=== PATIENT | male | born 1955 | race African-American/Black ===

== ENCOUNTER 2020-12-14 01:22 | Inpatient (IN) | payer OTHER ==
[2020-12-14 02:50] LABS: VENOUS BASE EXCESS -0.2 mmol/L (-2-2); VENOUS O2 SATURATION 69.1 % (70-80); VENOUS PCO2 49.7 mmHg (38-52); VENOUS PH 7.343 (7.310-7.410)
[2020-12-14 03:03] LABS: BASO % 0.2 % (0-2.0); HEMATOCRIT 48.5 % (35.4-49); HEMOGLOBIN 16.6 GM/dL (11.7-16.9); LYMPH % 15.1 % (8-40); MCHC 34.2 g/dl (32.0-35.9); MEAN CELL VOLUME 90.6 fl (80-96); MEAN PLT VOLUME 10.8 fl (7.5-11.1); MONO % 7.5 % (3.8-10.2); NEUT % 77.2 % (42.8-82.8); PLATELET COUNT 93 K/MM3 (134-434); RBC 5.35 M/mm3 (4.00-5.60); RDW 14.3 % (11.9-15.9); WHITE BLOOD COUNT 7.3 K/mm3 (4.0-10.0)
[2020-12-14 03:27] LABS: POTASSIUM 4.5 mmol/L (3.5-5.1)
[2020-12-14 03:30] LABS: CALCIUM 8.1 mg/dL (8.5-10.1)
[2020-12-14 03:31] LABS: ALBUMIN 2.9 g/dl (3.4-5.0); BLOOD UREA NITROGEN 21.8 mg/dL (7-18)
[2020-12-14 03:32] LABS: INR 1.21 (0.83-1.09); PROTHROMBIN TIME (PATIENT) 14.8 SEC (9.7-13.0)
[2020-12-14 03:33] LABS: BILIRUBIN,DIRECT 0.4 mg/dL (0.0-0.2)
[2020-12-14 03:34] LABS: CREATININE 1.2 mg/dL (0.55-1.3)
[2020-12-14 03:35] LABS: ACTIVATED PTT 31.8 SECONDS (25.2-36.5); TOT PROT 7.2 g/dl (6.4-8.2)
[2020-12-14 03:36] LABS: EPI CELLS 16 /uL (0-25.1); HYALINE CASTS 7 /uL (0-3.1); PH,URINE 5.5 (5.0-8.0); URINE APPEARANCE CLEAR; URINE BACTERIA 98 /uL (0-1359); URINE BILIRUBIN 1+ (NEGATIVE); URINE COLOR DK YELLOW; URINE GLUCOSE (UA) NEGATIVE (NEGATIVE); URINE KETONE 1+ (NEGATIVE); URINE LEUK ESTERASE NEGATIVE (NEGATIVE); URINE NITRITE NEGATIVE (NEGATIVE); URINE PROTEIN 4+ (NEGATIVE); URINE RBC 23 /uL (0-23.9); URINE WBC 18 /uL (0-25.8)
[2020-12-14] MEDS ORDERED: DEXAMETHASONE SOD PHOSPHATE 4 MG/1 ML VIAL IVPUSH ONE (04:06)
[2020-12-14] MEDS ORDERED: ACETAMINOPHEN 325 MG TABLET (FP) PO PRN ×2 (05:05→22:55)
[2020-12-14] MEDS ORDERED: ALBUTEROL SO4 0.083% IH SOL 2.5 MG/3 ML VIAL.NEB. NEB PRN ×2 (05:08→22:55)
[2020-12-14] MEDS ORDERED: SODIUM CHLORIDE 1,000 ML IV STA (05:10)
[2020-12-14] MEDS ORDERED: DEXAMETHASONE SOD PHOSPHATE 10 MG/1 ML VIAL ONE (05:15)
[2020-12-14] MEDS ORDERED: ZINC SULFATE 220 MG CAPSULE (FP) PO SCH (10:00)
[2020-12-14] MEDS ORDERED: ASCORBIC ACID 500 MG TABLET (FP) PO SCH ×2 (10:00→22:00)
[2020-12-14] MEDS ORDERED: ENOXAPARIN NA (PORCINE) 40 MG/0.4 ML DISP.SYRIN SQ SCH (10:00)
[2020-12-14] MEDS ORDERED: CHOLECALCIFEROL (VIT D3) 1,000 UNIT (25 MCG) TABLET PO SCH (10:00)
[2020-12-14] MEDS ORDERED: CEFTRIAXONE 1,000 MG in DEXTROSE 5%-WATER - 50 ML IVPB SCH (10:15)
[2020-12-14] MEDS ORDERED: FAMOTIDINE 20 MG TABLET ONE (10:19)
[2020-12-14] MEDS ORDERED: ZINC SULFATE 220 MG CAPSULE (FP) ONE (10:19)
[2020-12-14] MEDS ORDERED: CHOLECALCIFEROL (VIT D3) 1,000 UNIT (25 MCG) TABLET ONE (10:20)
[2020-12-14] MEDS ORDERED: DOXYCYCLINE HYCLATE 100 MG VIAL ONE (10:20)
[2020-12-14] MEDS ORDERED: CEFTRIAXONE 1 GM/50 ML BAG ONE (10:20)
[2020-12-14] MEDS ORDERED: ENOXAPARIN NA (PORCINE) 40 MG/0.4 ML DISP.SYRIN SQ ONE (10:20)
[2020-12-14] MEDS: FAMOTIDINE 20 MG TABLET PO SCH ×2 (10:38→21:48)
[2020-12-14] MEDS ORDERED: CEFTRIAXONE 1 GM in DEXTROSE 5%-WATER - 50 ML IVPB SCH (10:44)
[2020-12-14] MEDS: DOXYCYCLINE INJECTION 100 MG in DEXTROSE 5%-WATER - 100 ML IVPB SCH ×2 (11:12→23:14)
[2020-12-14] MEDS: BUDESONIDE/FORMETEROL FUMARATE 160/4.5 mcg INHALER IH SCH ×2 (12:21→23:13)
[2020-12-14] MEDS ORDERED: dilTIAZem HCL 50 MG/10 ML - 10 ML VIAL IVPUSH ONE (19:33)
[2020-12-14] MEDS ORDERED: dilTIAZem HCL 125 MG/25 ML - 25 ML VIAL ONE (19:37)
[2020-12-14] MEDS ORDERED: dilTIAZem HCL 30 MG TABLET ONE (19:42)
[2020-12-14] MEDS ORDERED: dilTIAZem HCL 50 MG/10 ML - 10 ML VIAL IVPUSH PRN (19:55)
[2020-12-14] MEDS ORDERED: dilTIAZem HCL 30 MG TABLET PO SCH (20:00)
[2020-12-14] MEDS: dilTIAZem HCL 25 MG/5 ML - 5 ML VIAL IVPUSH PRN (21:47)
[2020-12-14] MEDS ORDERED: REMDESIVIR 200 MG in SODIUM CHLORIDE 210 ML IVPB ONE (22:00)
[2020-12-14] MEDS ORDERED: PT OWN MED DRAWER 7, Y5N ONE (22:49)
[2020-12-15] MEDS: BUDESONIDE/FORMETEROL FUMARATE 160/4.5 mcg INHALER IH SCH ×3 (00:17→23:26)
[2020-12-15] MEDS: DOXYCYCLINE INJECTION 100 MG in DEXTROSE 5%-WATER - 100 ML IVPB SCH ×3 (00:17→23:22)
[2020-12-15 00:50] VITALS: BMI 31.1
[2020-12-15] MEDS: dilTIAZem HCL 25 MG/5 ML - 5 ML VIAL IVPUSH PRN (06:29)
[2020-12-15 07:34] LABS: BASO % 0.3 % (0-2.0); HEMATOCRIT 51.9 % (35.4-49); HEMOGLOBIN 17.6 GM/dL (11.7-16.9); LYMPH % 6.6 % (8-40); MCHC 33.9 g/dl (32.0-35.9); MEAN CELL VOLUME 91.6 fl (80-96); MEAN PLT VOLUME 10.5 fl (7.5-11.1); NEUT % 88.1 % (42.8-82.8); PLATELET COUNT 124 K/MM3 (134-434); RBC 5.66 M/mm3 (4.00-5.60); RDW 14.4 % (11.9-15.9); WHITE BLOOD COUNT 15.5 K/mm3 (4.0-10.0)
[2020-12-15 08:08] LABS: POTASSIUM 4.1 mmol/L (3.5-5.1)
[2020-12-15 08:10] LABS: CALCIUM 8.5 mg/dL (8.5-10.1)
[2020-12-15 08:11] LABS: ALBUMIN 2.8 g/dl (3.4-5.0); BLOOD UREA NITROGEN 25.4 mg/dL (7-18)
[2020-12-15 08:14] LABS: PHOSPHOROUS 2.9 mg/dL (2.5-4.9)
[2020-12-15 08:15] LABS: BILIRUBIN,TOTAL 0.4 mg/dL (0.2-1); MAGNESIUM 2.1 mg/dL (1.8-2.4)
[2020-12-15 08:16] LABS: TOT PROT 7.2 g/dl (6.4-8.2)
[2020-12-15] MEDS ORDERED: PT OWN MED DRAWER 7, Y5N ONE ×2 (08:58→10:17)
[2020-12-15] MEDS ORDERED: dilTIAZem HCL 50 MG/10 ML - 10 ML VIAL IVPUSH ONE (09:08)
[2020-12-15] MEDS ORDERED: METOPROLOL TARTRATE 5 MG/5 ML VIAL IVPUSH ONE ×3 (09:20→16:50)
[2020-12-15] MEDS ORDERED: METOPROLOL TARTRATE 5 MG/5 ML VIAL ONE ×2 (09:25→17:00)
[2020-12-15] MEDS ORDERED: METOPROLOL TARTRATE 25 MG TABLET (FP) PO SCH (09:34)
[2020-12-15] MEDS ORDERED: METOPROLOL TARTRATE 5 MG/5 ML VIAL IVPUSH PRN (09:34)
[2020-12-15] MEDS ORDERED: ENOXAPARIN NA (PORCINE) 40 MG/0.4 ML DISP.SYRIN SQ SCH (10:00)
[2020-12-15] MEDS ORDERED: FAMOTIDINE 20 MG TABLET PO SCH (10:00)
[2020-12-15] MEDS ORDERED: DEXAMETHASONE SOD PHOSPHATE 4 MG/1 ML VIAL IVPUSH SCH (10:00)
[2020-12-15] MEDS ORDERED: CEFTRIAXONE 1 GM in DEXTROSE 5%-WATER - 50 ML IVPB SCH (10:00)
[2020-12-15] MEDS ORDERED: cefTRIAXone SODIUM 1 GM VIAL ONE (10:17)
[2020-12-15] MEDS ORDERED: DEXTROSE 5%-WATER - 50 ML IVPB ONE ×2 (10:17→22:36)
[2020-12-15] MEDS: DEXAMETHASONE SOD PHOSPHATE 4 MG/1 ML VIAL IVPUSH SCH (10:47)
[2020-12-15] MEDS: ZINC SULFATE 220 MG CAPSULE (FP) PO SCH (10:47)
[2020-12-15] MEDS: ASCORBIC ACID 500 MG TABLET (FP) PO SCH ×2 (10:47→22:32)
[2020-12-15] MEDS: CHOLECALCIFEROL (VIT D3) 1,000 UNIT (25 MCG) TABLET PO SCH (10:49)
[2020-12-15] MEDS ORDERED: METOPROLOL TARTRATE 25 MG TABLET (FP) PO ONE (12:00)
[2020-12-15] MEDS: METOPROLOL TARTRATE 50 MG TABLET (FP) PO SCH ×2 (13:11→22:30)
[2020-12-15] MEDS ORDERED: FUROSEMIDE 40 MG/4 ML INJECTABLE VIAL IVPUSH ONE (15:41)
[2020-12-15] MEDS ORDERED: AMIODARONE HCL 150 MG/3 ML VIAL IVPUSH ONE (16:46)
[2020-12-15] MEDS ORDERED: AMIODARONE IN DEXTROSE,ISO-OSM 150 MG/100 ML BAG IVPB ONE (16:46)
[2020-12-15] MEDS ORDERED: morphine SULFATE 4 MG/ML VIAL ONE (16:59)
[2020-12-15] MEDS ORDERED: AMIODARONE IN DEXTROSE,ISO-OSM 360 MG/200 ML BAG ONE ×2 (17:08→23:41)
[2020-12-15] MEDS ORDERED: morphine SULFATE 4 MG/ML VIAL IVPUSH ONE (17:10)
[2020-12-15] MEDS ORDERED: LORazepam 2 MG/ML SDV VIAL ONE (17:11)
[2020-12-15] MEDS ORDERED: RAPID SEQUENCE INTUBATION KIT NR ONE (17:22)
[2020-12-15] MEDS ORDERED: FENTANYL IVPB 500 MCG/100 ML BAG IVPB ONE (17:38)
[2020-12-15] MEDS ORDERED: VECURONIUM BROMIDE 10 MG/10 ML VIAL IV ONE (17:57)
[2020-12-15] MEDS ORDERED: VECURONIUM BROMIDE 10 MG/10 ML VIAL ONE (17:57)
[2020-12-15] MEDS ORDERED: TOCILIZUMAB (ACTEMRA) 200 MG/10 ML VIAL IVPB ONE (18:00)
[2020-12-15] MEDS ORDERED: LORazepam 2 MG/ML SDV VIAL IVPUSH ONE (18:19)
[2020-12-15 18:36] LABS: ARTERIAL BLD GAS O2 SATURATION 77.2 mmHg (95-98); ARTERIAL BLOOD GAS BASE EXCESS -10.7 mmol/L (-2-2); ARTERIAL BLOOD GAS PO2 56.8 mmHg (80-100)
[2020-12-15 18:37] LABS: ALLENS TEST POSITIVE
[2020-12-15 18:42] LABS: VENT MODE A/C; VENT RATE 28
[2020-12-15] MEDS ORDERED: TOCILIZUMAB 600 MG in SODIUM CHLORIDE 70 ML IVPB ONE (19:00)
[2020-12-15] MEDS: PROPOFOL 1,000,000 MCG/100 ML VIAL IVPB SCH (19:25)
[2020-12-15] MEDS: FENTANYL IVPB 500 MCG/100 ML BAG IVPB SCH (19:26)
[2020-12-15] MEDS ORDERED: SODIUM CHLORIDE 250 ML IV STA (19:39)
[2020-12-15] MEDS ORDERED: CALCIUM CHLORIDE 1 GM/10 ML *DISP.SYRIN ONE (20:48)
[2020-12-15 21:55] LABS: BASO % 1.6 % (0-2.0); EOS % 0.2 % (0-4.5); HEMATOCRIT 54.9 % (35.4-49); MCH 31.2 pg (25.7-33.7); MCHC 32.9 g/dl (32.0-35.9); MEAN PLT VOLUME 10.2 fl (7.5-11.1); MONO % 2.8 % (3.8-10.2); NEUT % 88.4 % (42.8-82.8); RBC 5.77 M/mm3 (4.00-5.60); WHITE BLOOD COUNT 16.4 K/mm3 (4.0-10.0)
[2020-12-15] MEDS ORDERED: REMDESIVIR 100 MG in SODIUM CHLORIDE 230 ML IVPB SCH (22:00)
[2020-12-15 22:01] LABS: INR 1.45 (0.83-1.09); PROTHROMBIN TIME (PATIENT) 17.7 SEC (9.7-13.0)
[2020-12-15 22:03] LABS: ACTIVATED PTT 42.9 SECONDS (25.2-36.5)
[2020-12-15 22:12] LABS: ARTERIAL BLD GAS O2 SATURATION 87.9 mmHg (95-98); ARTERIAL BLOOD GAS BASE EXCESS -16.4 mmol/L (-2-2); ARTERIAL BLOOD GAS PO2 80.6 mmHg (80-100)
[2020-12-15 22:19] LABS: CHLORIDE 100 mmol/L (98-107); SODIUM 141 mmol/L (136-145)
[2020-12-15 22:21] LABS: ALLENS TEST POSITIVE; VENT MODE A/C; VENT RATE 34
[2020-12-15 22:21] LABS: ALBUMIN 1.9 g/dl (3.4-5.0); BLOOD UREA NITROGEN 40.2 mg/dL (7-18); CO2 23 mmol/L (21-32); GLUCOSE,RANDOM 85 mg/dL (74-106); MAGNESIUM 4.1 mg/dL (1.8-2.4)
[2020-12-15 22:23] LABS: ARTERIAL BLOOD GAS pH 6.988 (7.350-7.450)
[2020-12-15 22:24] LABS: CREATININE 2.7 mg/dL (0.55-1.3)
[2020-12-15 22:26] LABS: BILIRUBIN,TOTAL 0.9 mg/dL (0.2-1); TOT PROT 5.9 g/dl (6.4-8.2)
[2020-12-15 22:27] LABS: ALK PHOS 76 U/L (45-117)
[2020-12-15 22:34] LABS: ANION GAP 18 MMOL/L (8-16); SGPT/ALT 3004 U/L (13-61)
[2020-12-15] MEDS ORDERED: PIPERACILLIN/TAZOBACTAM 3.375 GM VIAL IVPB ONE (22:36)
[2020-12-15 22:37] LABS: PHOSPHOROUS 13.4 mg/dL (2.5-4.9); POTASSIUM 6.1 mmol/L (3.5-5.1)
[2020-12-15] MEDS ORDERED: INSULIN REGULAR HUMAN 100 UNITS/ML *VIAL SQ ONE (22:40)
[2020-12-15] MEDS ORDERED: DEXTROSE 50%-WATER - 25 GM/50 ML VIAL IVPUSH ONE (22:40)
[2020-12-15] MEDS ORDERED: ALBUTEROL SO4 0.083% IH SOL 2.5 MG/3 ML VIAL.NEB. NEB ONE (22:41)
[2020-12-15] MEDS ORDERED: DEXTROSE 50%-WATER 25 GM/50 ML DISP.SYRIN ONE (22:41)
[2020-12-15] MEDS ORDERED: CALCIUM GLUCONATE 10% - 1,000 MG/10 ML VIAL IVPUSH ONE (22:42)
[2020-12-15] MEDS ORDERED: SODIUM BICARBONATE 8.4% - 150 MEQ in DEXTROSE 5%-WATER - 950 ML IVPB SCH (22:45)
[2020-12-15 22:54] LABS: ANISOCYTOSIS 1+; MACROCYTOSIS 0; PLATELET ESTIMATE DECREASED
[2020-12-15 22:56] LABS: PLATELET COUNT 90 K/MM3 (134-434)
[2020-12-15] MEDS: FAMOTIDINE 20 MG/50 ML IVPB 20 MG/50 ML MG IVPB SCH (23:22)
[2020-12-15] MEDS: PIPERACILLIN/TAZOB 3.375 GM 3.375 GM in DEXTROSE 5%-WATER - 50 ML IVPB SCH (23:23)
[2020-12-15] MEDS ORDERED: AMIODARONE HCL INJECTION 150 MG in DEXTROSE 5%-WATER - 100 ML IVPB ONE (23:31)
[2020-12-16] MEDS: SODIUM BICARBONATE 8.4% - 150 MEQ in DEXTROSE 5%-WATER - 1,000 ML IVPB SCH ×3 (00:01→23:04)
[2020-12-16] MEDS ORDERED: AMIODARONE IN DEXTROSE,ISO-OSM 360 MG/200 ML BAG IVPB SCH (00:15)
[2020-12-16] MEDS: AMIODARONE IN DEXTROSE,ISO-OSM 360 MG/200 ML BAG IVPB SCH ×2 (00:24→20:00)
[2020-12-16] MEDS: NOREPINEPHRINE D5W PREMIX 16,000 MCG/500 ML BAG IVPB SCH ×2 (00:25→23:00)
[2020-12-16] MEDS ORDERED: DEXTROSE 5%-WATER - 50 ML IVPB ONE ×4 (01:21→17:39)
[2020-12-16] MEDS ORDERED: PIPERACILLIN/TAZOBACTAM 3.375 GM VIAL IVPB ONE ×3 (01:21→08:06)
[2020-12-16] MEDS: PIPERACILLIN/TAZOB 3.375 GM 3.375 GM in DEXTROSE 5%-WATER - 50 ML IVPB SCH ×2 (03:56→09:18)
[2020-12-16 06:29] LABS: ARTERIAL BLD GAS O2 SATURATION 76.9 mmHg (95-98); ARTERIAL BLOOD GAS BASE EXCESS -20.7 mmol/L (-2-2); ARTERIAL BLOOD GAS PO2 67.6 mmHg (80-100)
[2020-12-16 06:40] LABS: ALLENS TEST POSITIVE; VENT MODE A/C
[2020-12-16 06:41] LABS: VENT RATE 34
[2020-12-16] MEDS: METOPROLOL TARTRATE 50 MG TABLET (FP) PO SCH (07:00)
[2020-12-16 07:22] LABS: BASO % 0.3 % (0-2.0); EOS % 0.1 % (0-4.5); HEMATOCRIT 48.3 % (35.4-49); HEMOGLOBIN 15.2 GM/dL (11.7-16.9); LYMPH % 10.6 % (8-40); MCH 31.2 pg (25.7-33.7); MCHC 31.4 g/dl (32.0-35.9); MEAN CELL VOLUME 99.5 fl (80-96); MEAN PLT VOLUME 10.6 fl (7.5-11.1); MONO % 2.3 % (3.8-10.2); NEUT % 86.7 % (42.8-82.8); PLATELET COUNT 73 K/MM3 (134-434); RBC 4.85 M/mm3 (4.00-5.60); RDW 16.2 % (11.9-15.9); WHITE BLOOD COUNT 15.3 K/mm3 (4.0-10.0)
[2020-12-16 07:52] LABS: ALBUMIN 1.6 g/dl (3.4-5.0); CALCIUM 7.6 mg/dL (8.5-10.1)
[2020-12-16 07:53] LABS: BLOOD UREA NITROGEN 45.5 mg/dL (7-18); CO2 16 mmol/L (21-32); MAGNESIUM 3.2 mg/dL (1.8-2.4)
[2020-12-16 07:56] LABS: CREATININE 3.5 mg/dL (0.55-1.3)
[2020-12-16 07:57] LABS: TOT PROT 4.8 g/dl (6.4-8.2)
[2020-12-16 07:58] LABS: ALK PHOS 97 U/L (45-117)
[2020-12-16 08:19] LABS: CHLORIDE 94 mmol/L (98-107); POTASSIUM 5.8 mmol/L (3.5-5.1)
[2020-12-16 08:20] LABS: ANION GAP 26 MMOL/L (8-16); SGPT/ALT 6172 U/L (13-61); SODIUM 136 mmol/L (136-145)
[2020-12-16 08:29] LABS: GLUCOSE,RANDOM 439 mg/dL (74-106); PHOSPHOROUS 14.1 mg/dL (2.5-4.9)
[2020-12-16] MEDS: FAMOTIDINE 20 MG/50 ML IVPB 20 MG/50 ML MG IVPB SCH ×2 (09:17→22:05)
[2020-12-16] MEDS ORDERED: PT OWN MED DRAWER 7, Y5N ONE ×2 (09:30→23:11)
[2020-12-16 09:39] LABS: SGOT/AST > 2002 U/L (15-37)
[2020-12-16] MEDS ORDERED: VANCOMYCIN 1 GM in D5W (PRE-DOCKED) 1,000 MG/250 ML IVPB ONE (09:43)
[2020-12-16 09:44] LABS: SGOT/AST QNS U/L (15-37)
[2020-12-16 09:45] LABS: LDH QNS U/L (87-246)
[2020-12-16] MEDS: DEXAMETHASONE SOD PHOSPHATE 4 MG/1 ML VIAL IVPUSH SCH (09:55)
[2020-12-16] MEDS: ZINC SULFATE 220 MG CAPSULE (FP) PO SCH (10:39)
[2020-12-16] MEDS: ASCORBIC ACID 500 MG TABLET (FP) PO SCH ×2 (10:39→23:07)
[2020-12-16] MEDS: APIXABAN 5 MG TABLET PO SCH ×2 (10:39→23:05)
[2020-12-16] MEDS: CHOLECALCIFEROL (VIT D3) 1,000 UNIT (25 MCG) TABLET PO SCH (10:43)
[2020-12-16] MEDS: DOXYCYCLINE INJECTION 100 MG in DEXTROSE 5%-WATER - 100 ML IVPB SCH ×2 (10:59→23:08)
[2020-12-16 11:22] LABS: ANISOCYTOSIS 1+; MACROCYTOSIS 0; PLATELET ESTIMATE DECREASED
[2020-12-16] MEDS ORDERED: VASOPRESSIN 20 UNITS/ML VIAL IV ONE (12:08)
[2020-12-16] MEDS: SODIUM ZIRCONIUM CYCLOSILICATE (LOKELMA) 5 GM PACKET PO SCH (12:27)
[2020-12-16] MEDS: DOPAMINE 400 MG/D5W - 400,000 MCG/250 ML INFUS.BAG IVPB SCH (12:27)
[2020-12-16] MEDS: CALCIUM ACETATE 667 MG CAPSULE (FP) PO SCH ×2 (12:28→17:57)
[2020-12-16] MEDS: VASOPRESSIN 40 UNITS in SODIUM CHLORIDE 98 ML IVPB SCH (12:28)
[2020-12-16] MEDS ORDERED: VECURONIUM BROMIDE 50 MG/50 ML VIAL IVPUSH ONE (14:21)
[2020-12-16] MEDS ORDERED: VECURONIUM BROMIDE 10 MG/10 ML VIAL ONE (14:21)
[2020-12-16] MEDS: VECURONIUM BROMIDE 100 MG/100 ML BAG IVPB SCH (14:30)
[2020-12-16] MEDS ORDERED: PIPERACILLIN/TAZOBACTAM 2.25 GM VIAL IVPB ONE (17:39)
[2020-12-16] MEDS: BUDESONIDE/FORMETEROL FUMARATE 160/4.5 mcg INHALER IH SCH ×2 (17:57→22:06)
[2020-12-16] MEDS: PIPERACILLIN/TAZOB 2.25 GM 2.25 GM in DEXTROSE 5%-WATER - 50 ML IVPB SCH (18:06)
[2020-12-16] MEDS: PROPOFOL 1,000,000 MCG/100 ML VIAL IVPB SCH (18:06)
[2020-12-16 19:32] LABS: MAGNESIUM 2.7 mg/dL (1.8-2.4)
[2020-12-16 19:48] LABS: PHOSPHOROUS 13.5 mg/dL (2.5-4.9)
[2020-12-16] MEDS: FENTANYL IVPB 500 MCG/100 ML BAG IVPB SCH (23:05)
[2020-12-17] MEDS ORDERED: DEXTROSE 5%-WATER - 50 ML IVPB ONE ×2 (01:17→08:34)
[2020-12-17] MEDS ORDERED: PIPERACILLIN/TAZOBACTAM 2.25 GM VIAL IVPB ONE ×2 (01:17→08:34)
[2020-12-17] MEDS: NOREPINEPHRINE D5W PREMIX 16,000 MCG/500 ML BAG IVPB SCH (02:00)
[2020-12-17] MEDS: PIPERACILLIN/TAZOB 2.25 GM 2.25 GM in DEXTROSE 5%-WATER - 50 ML IVPB SCH ×2 (02:01→10:03)
[2020-12-17] MEDS: AMIODARONE IN DEXTROSE,ISO-OSM 360 MG/200 ML BAG IVPB SCH (02:10)
[2020-12-17] MEDS: SODIUM BICARBONATE 8.4% - 150 MEQ in DEXTROSE 5%-WATER - 1,000 ML IVPB SCH ×2 (02:37→13:58)
[2020-12-17 07:35] LABS: HEMATOCRIT 54.7 % (35.4-49); HEMOGLOBIN 17.5 GM/dL (11.7-16.9); MCH 30.8 pg (25.7-33.7); MCHC 31.9 g/dl (32.0-35.9); MEAN CELL VOLUME 96.5 fl (80-96); PLATELET COUNT 66 K/MM3 (134-434); RBC 5.67 M/mm3 (4.00-5.60); WHITE BLOOD COUNT 18.9 K/mm3 (4.0-10.0)
[2020-12-17] MEDS: CALCIUM ACETATE 667 MG CAPSULE (FP) PO SCH ×2 (07:57→12:16)
[2020-12-17 08:11] LABS: ALBUMIN 1.6 g/dl (3.4-5.0); BLOOD UREA NITROGEN 56.6 mg/dL (7-18); CO2 26 mmol/L (21-32)
[2020-12-17 08:14] LABS: CREATININE 4.8 mg/dL (0.55-1.3)
[2020-12-17 08:16] LABS: TOT PROT 4.7 g/dl (6.4-8.2)
[2020-12-17 08:25] VITALS: TEMP 96.5
[2020-12-17 09:20] LABS: ALK PHOS 208 U/L (45-117); ANION GAP 19 MMOL/L (8-16); BILIRUBIN,TOTAL 3.5 mg/dL (0.2-1); CHLORIDE 79 mmol/L (98-107); SGPT/ALT 5836 U/L (13-61); SODIUM 124 mmol/L (136-145)
[2020-12-17 09:23] LABS: CALCIUM 5.8 mg/dL (8.5-10.1); GLUCOSE,RANDOM 715 mg/dL (74-106); POTASSIUM 6.6 mmol/L (3.5-5.1)
[2020-12-17] MEDS ORDERED: CALCIUM GLUCONATE 10% - 1,000 MG/10 ML VIAL IVPUSH ONE (09:37)
[2020-12-17] MEDS: APIXABAN 5 MG TABLET PO SCH (10:01)
[2020-12-17] MEDS: FAMOTIDINE 20 MG/50 ML IVPB 20 MG/50 ML MG IVPB SCH (10:01)
[2020-12-17] MEDS: DEXAMETHASONE SOD PHOSPHATE 4 MG/1 ML VIAL IVPUSH SCH (10:01)
[2020-12-17] MEDS ORDERED: INSULIN REGULAR HUMAN 100 UNITS/ML *VIAL SQ ONE (10:01)
[2020-12-17] MEDS: SODIUM ZIRCONIUM CYCLOSILICATE (LOKELMA) 5 GM PACKET PO SCH (10:01)
[2020-12-17] MEDS: DOXYCYCLINE INJECTION 100 MG in DEXTROSE 5%-WATER - 100 ML IVPB SCH (10:01)
[2020-12-17] MEDS: ASCORBIC ACID 500 MG TABLET (FP) PO SCH (10:02)
[2020-12-17] MEDS: ZINC SULFATE 220 MG CAPSULE (FP) PO SCH (10:02)
[2020-12-17] MEDS: CHOLECALCIFEROL (VIT D3) 1,000 UNIT (25 MCG) TABLET PO SCH (10:02)
[2020-12-17 10:44] LABS: ARTERIAL BLD GAS O2 SATURATION 33.4 mmHg (95-98); ARTERIAL BLOOD GAS BASE EXCESS -11.4 mmol/L (-2-2)
[2020-12-17 10:45] LABS: ALLENS TEST POSITIVE
[2020-12-17 10:46] LABS: VENT MODE A/C; VENT RATE 34
[2020-12-17 10:51] LABS: ARTERIAL BLOOD GAS pH 7.005 (7.350-7.450)
[2020-12-17 10:52] LABS: ARTERIAL BLOOD GAS PO2 30.5 mmHg (80-100)
[2020-12-17] MEDS: BUDESONIDE/FORMETEROL FUMARATE 160/4.5 mcg INHALER IH SCH (12:14)
[2020-12-17] MEDS: DOPAMINE 400 MG/D5W - 400,000 MCG/250 ML INFUS.BAG IVPB SCH (12:15)
[2020-12-17] MEDS: VASOPRESSIN 40 UNITS in SODIUM CHLORIDE 98 ML IVPB SCH (12:16)
[2020-12-17] MEDS ORDERED: INSULIN REGULAR 100 UNITS in SODIUM CHLORIDE 99 ML IVPB SCH (13:45)
[2020-12-17] MEDS: VECURONIUM BROMIDE 100 MG/100 ML BAG IVPB SCH (13:58)
[2020-12-17 15:33] VITALS: BP 145/78; PULSE 67
[2020-12-17] MEDS ORDERED: morphine SULFATE 4 MG/ML VIAL IVPUSH ONE (17:04)
[2020-12-17] MEDS ORDERED: MORPHINE SULFATE/0.9% NACL/PF 100 MG/100 ML BAG IVPB SCH (17:15)
== END 2020-12-17 17:46 | disposition expired | DRG 871 ==
LOC: JER 01:22 → JERBED 03:44 → J4W 21:23 → JICU 12-15 16:54
PROVIDERS: ADMIT Internal Medicine; ATTEND Internal Medicine Pulmonary Disease
PROC: XW033E5 Introduction of Remdesivir Anti-infective into Peripheral Vein, Percutaneous Approach, New Technology Group 5 (ICD-10-PCS; principal; 2020-12-15)
PROC: XW13325 Transfusion of Convalescent Plasma (Nonautologous) into Peripheral Vein, Percutaneous Approach, New Technology Group 5 (ICD-10-PCS; 2020-12-15)
PROC: 0BH17EZ Insertion of Endotracheal Airway into Trachea, Via Natural or Artificial Opening (ICD-10-PCS; 2020-12-15)
PROC: 5A1945Z Respiratory Ventilation, 24-96 Consecutive Hours (ICD-10-PCS; 2020-12-15)
PROC: 05HN33Z Insertion of Infusion Device into Left Internal Jugular Vein, Percutaneous Approach (ICD-10-PCS; 2020-12-16)
PROC: B544ZZA Ultrasonography of Left Jugular Veins, Guidance (ICD-10-PCS; 2020-12-16)
PROC: 4A133B1 Monitoring of Arterial Pressure, Peripheral, Percutaneous Approach (ICD-10-PCS; 2020-12-17)
PROC: 4A133J1 Monitoring of Arterial Pulse, Peripheral, Percutaneous Approach (ICD-10-PCS; 2020-12-17)
DX: A41.9 Sepsis, unspecified organism (principal); U07.1 COVID-19; J12.82 Pneumonia due to coronavirus disease 2019; R65.21 Severe sepsis with septic shock; K72.00 Acute and subacute hepatic failure without coma; J96.01 Acute respiratory failure with hypoxia; J96.22 Acute and chronic respiratory failure with hypercapnia; I24.8 Other forms of acute ischemic heart disease; E87.1 Hypo-osmolality and hyponatremia; I46.9 Cardiac arrest, cause unspecified; E66.9 Obesity, unspecified; I48.91 Unspecified atrial fibrillation; Z86.73 Personal history of transient ischemic attack (TIA), and cerebral infarction without residual deficits; D69.6 Thrombocytopenia, unspecified; Z95.5 Presence of coronary angioplasty implant and graft; Z87.891 Personal history of nicotine dependence; Z68.31 Body mass index [BMI] 31.0-31.9, adult; F41.8 Other specified anxiety disorders; J44.9 Chronic obstructive pulmonary disease, unspecified
CPT/HCPCS: 31500; 36415; 36430; 36600; 70450-TC; 71045-TC-FY; 80053; 80061; 81003; 82248; 82550; 82553; 82728; 82803; 82962; 83605; 83615; 83721; 83735; 84100; 84443; 84484; 85025; 85027; 85379; 85610; 85730; 86140; 86480; 86704; 86706; 86850; 86900; 86901; 87040; 87070; 87086; 87205; 87340; 87804; 93005; 93010; 93306-TC; 94002; 94640; 99285-25; C9399; C9803; J0282; J3262; P9017; U0003